=== PATIENT | female | born 1945 | race Caucasian/White ===

== ENCOUNTER 2016-05-15 10:31 | Outpatient (CLI) | payer MEDICARE, OTHER ==
--- NOTE | 2016-05-15 15:13 | RAD ---
THORACIC SPINE TWO VIEWS: Date: 05-15-16 FINDINGS: No acute fracture was appreciated. Mild degenerative changes are seen. There may be a little disc space narrowing near the thoracolumbar junction. IMPRESSION: No acute findings. POS: HOME
== END 2016-05-15 10:32 | disposition home or self-care (01) ==
LOC: BURRAD 10:31
PROVIDERS: ATTEND Family Medicine
DX: M54.6 Pain in thoracic spine (principal)
CPT/HCPCS: 72070

== ENCOUNTER 2016-09-26 08:42 | Outpatient (CLI) | payer MEDICARE ==
--- NOTE | 2016-09-26 11:47 | CT ---
CT CHEST WITH CONTRAST: History: Abnormality seen on a recent thoracic spine MRI. Technique: CT of the chest was performed after the intravenous administration of contrast. FINDINGS: Corresponding to the MRI findings is a focal fatty herniation through the posterior hemidiaphragm. T his is similar to the 2014 examination. No mass. There is mild pleural thickening of the right lung base. No suspicious pulmonary nodule. There is pe ripheral pleural thickening of the left upper lobe. Visualized thyroid is unremarkable. Aorta size is normal. Pulmonary trunk size is normal. No adenopathy in the chest. Limited evaluation of the upper abdomen is unremarkable. Deformities to the spine are similar. IMPRESSION: Benign posterior fat containing diaphragmatic hernia is similar to the CT examination from 2014. No mass. POS: OFF
== END 2016-09-26 08:43 | disposition home or self-care (01) ==
LOC: BURCT 08:42
PROVIDERS: ATTEND Nurse Practitioner Family
DX: N28.9 Disorder of kidney and ureter, unspecified (principal); R91.8 Other nonspecific abnormal finding of lung field; K44.9 Diaphragmatic hernia without obstruction or gangrene
CPT/HCPCS: 36415; 71260; 82565; 84520

== ENCOUNTER 2019-09-15 11:02 | Emergency (ER) | payer MEDICARE, OTHER ==
[2019-09-15 12:19] LABS: INR-International Normal Ratio 1.3; PTT 40.2 SEC (22.9-36.1); Prothrombin Time 15.8 sec (12.0-14.7)
[2019-09-15 12:21] LABS: #Basophils 0.2 thou/uL (0.0-0.2); #Lymphocytes 1.4 thou/uL (1.20-3.40); #Monocytes 1.4 thou/uL (0.11-0.59); #Neutrophils 11.9 thou/uL (1.40-6.50); %Basophils 1.4 % (0.0-1.0); %Lymphocytes 9.6 % (21.0-51.0); %Monocytes 9.5 % (0.0-10.0); %Neutrophils 79.4 % (42.0-75.0); Hemoglobin 9.5 g/dL (12.0-16.0); Mean Corpuscular HGB CONC 30.7 g/dL (32.0-36.0); Mean Corpuscular Hemoglobin 30.6 pg (27.0-31.0); Mean Corpuscular Volume 99.6 fL (78.0-98.0); Mean Platelet Volume 6.9 fL (7.4-10.4); Platelet Count 449 thou/uL (130-400); RBC Distribution Width 12.6 % (11.5-14.5); Red Blood Cell (RBC) Count 3.12 mill/uL (4.20-5.40); White Blood Cell (WBC) Count 14.9 thou/uL (4.8-10.8)
[2019-09-15 12:28] LABS: ALT (SGPT) 11 U/L (8-55); AST (SGOT) 24 U/L (5-34); Albumin 3.8 g/dL (3.4-4.8); Alkaline Phosphatase 65 U/L (40-110); Anion Gap 15 mmol/L (10-20); BUN (Urea Nitrogen) 18 mg/dL (9.8-20.1); Bilirubin, Total 0.4 mg/dL (0.2-1.2); Calc. Creatinine Clearance 0 mL/min (70-130); Carbon Dioxide 23 mmol/L (23-31); Chloride 107 mmol/L (98-107); Estimated GFR-MDRD 76; Globulin 3.7 g/dL (2.4-3.5); Glucose 109 mg/dL (83-110); Protein, Total 7.5 g/dL (6.0-8.3); Sodium 141 mmol/L (136-145)
[2019-09-15] MEDS ORDERED: Piperacillin/Tazobactam 4.5 GM VIAL ONE (12:36)
[2019-09-15] MEDS ORDERED: Sodium Chloride 0.9% 100 ML ONE (12:37)
--- NOTE | 2019-09-15 13:45 | CT ---
CT ABDOMEN AND PELVIS WITHOUT CONTRAST 09/15/[address] of the abdomen and pelvis was done without oral or IV contrast to evaluate a palpable area in the right lower abdomen. Comparison is made with the 2014 scan. Herniation of bowel through a defect in the linea semilunaris, just lateral to the right rectus muscl e, is noted. There is fluid filled bowel herniated through the defect that is sitting in the superfic ial soft tissues of the anterior abdominal wall. There is considerable streaking around the bowel and streaking that extends laterally into the flank and somewhat posteriorly. This suggests to me the po ssibility of soft tissue infection. I do not see any free air in the abdomen or the soft tissues. The lung bases are clear. The liver, spleen, pancreas, and abdominal aorta showed no acute findings w ithin the limitations of a noncontrast study. There is probably an exophytic cyst in the upper pole o f the right kidney. Tiny gallstones are noted in the gallbladder. CT of the pelvis shows a right adnexal cyst that measures 5 cm in size. Looking back at the 2014 stud y, this was present before and has actually decreased in size over time. This is prognostically good. No free fluid or inflammatory change is seen in the pelvis. There is no distention of bowel in this patient to suggest obstruction at this time. A small hiatal hernia was noted. Incidental finding was a very mild compression of the L4 vertebral body. IMPRESSION: 1. 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 I cannot rule out soft tissue infection here. 2. No current evidence for intestinal obstruction. 3. 5 cm right adnexal cyst. This is normally a large worry in this age group, however, it was pr esent in 2013 and was larger then. 4. Gallstones. 5. Mild compression of L4. Findings discussed with Dr. Parmar at 1251 on 09/15/2019. POS: HOME
[2019-09-15] MEDS ORDERED: Acetaminophen 500 MG TAB ONE (14:51)
== END 2019-09-15 15:20 | disposition short-term general hospital (02) ==
LOC: BURERS 11:02
DX: K43.9 Ventral hernia without obstruction or gangrene (principal); E78.5 Hyperlipidemia, unspecified; I10 Essential (primary) hypertension; F41.9 Anxiety disorder, unspecified; Z79.899 Other long term (current) drug therapy; Z86.718 Personal history of other venous thrombosis and embolism
CPT/HCPCS: 36415; 74176; 80053; 83605; 85025; 85610; 85730; 96365; 96367; J2543; J3370; J3490